=== PATIENT | male | born 1990 | race Caucasian/White ===

== ENCOUNTER 2017-01-22 00:45 | Observation (INO) | payer SELFPAY ==
[~2017-01-22] VITALS: Ht 188 cm; Wt 79.3 kg
[2017-01-22] MEDS ORDERED: OXYcodone/APAP 10/325MG TABLET PO ONE (01:30)
[2017-01-22] MEDS ORDERED: OXYcodone/APAP 10/325MG TABLET ONE (01:40)
[2017-01-22 02:23] LABS: BLOOD UREA NITROGEN 19 mg/dL (7-18)
[2017-01-22 02:26] LABS: ACETAMINOPHEN < 2 mcg/mL (10-30)
[2017-01-22 03:04] LABS: ANISOCYTOSIS 1+; HYPOCHROMIA 1+; MICROCYTOSIS 1+
[2017-01-22 03:05] LABS: OVALOCYTES 1+
[2017-01-22] MEDS ORDERED: ONDANSETRON ODT 4 MG PO PRN (04:30)
[2017-01-22] MEDS ORDERED: DOCUSATE 100 MG CAPSULE PO PRN (04:30)
[2017-01-22] MEDS ORDERED: BISACODYL 10 MG SUPP PR PRN (04:30)
[2017-01-22] MEDS ORDERED: POLYETHYLENE GLYCOL 17 GM PACKET PO PRN (04:30)
[2017-01-22] MEDS ORDERED: ACETAMINOPHEN 325 MG TABLET PO PRN (04:30)
[2017-01-22 04:32] LABS: DAU SCREEN DISCLAIMER
[2017-01-22 04:33] VITALS: BP 150/101
[2017-01-22 08:15] VITALS: BP 146/102
[2017-01-22] MEDS: FOLIC ACID 1 MG TABLET PO SCH (09:00)
[2017-01-22] MEDS: THIAMINE 100MG TABLET PO SCH (09:00)
[2017-01-22 13:30] VITALS: BP 145/81
[2017-01-22] MEDS: OXYcodone IR 5MG TABLET PO PRN (15:38)
[2017-01-22] MEDS: LORazepam 0.5MG TABLET PO PRN (20:07)
[2017-01-22 20:23] VITALS: BP 143/89
[2017-01-23] MEDS: FOLIC ACID 1 MG TABLET PO SCH (07:47)
[2017-01-23] MEDS: THIAMINE 100MG TABLET PO SCH (07:47)
[2017-01-23 08:02] VITALS: BP 133/81
[2017-01-23] MEDS: MULTIVITAMIN 1 TABLET PO SCH (11:30)
[2017-01-23] MEDS: OXYcodone IR 5MG TABLET PO PRN (13:00)
[2017-01-23] MEDS: LORazepam 0.5MG TABLET PO PRN (13:00)
[2017-01-23 19:37] VITALS: BP 128/87
[2017-01-24 08:20] VITALS: BP 134/85
[2017-01-24] MEDS: FOLIC ACID 1 MG TABLET PO SCH (09:43)
[2017-01-24] MEDS: THIAMINE 100MG TABLET PO SCH (09:43)
[2017-01-24] MEDS: MULTIVITAMIN 1 TABLET PO SCH (09:43)
[2017-01-24] MEDS ORDERED: LURASIDONE 20 MG TABLET PO SCH (12:30)
[2017-01-24] MEDS: OXYcodone IR 5MG TABLET PO PRN (12:49)
== END 2017-01-24 17:15 ==
LOC: ED 03:58 → EDIP 04:00 → 3E 04:34
PROVIDERS: ADMIT Internal Medicine; ATTEND Internal Medicine
DX: R45.851 Suicidal ideations (principal); D50.9 Iron deficiency anemia, unspecified; F10.20 Alcohol dependence, uncomplicated; F15.10 Other stimulant abuse, uncomplicated; R44.0 Auditory hallucinations; G47.10 Hypersomnia, unspecified; F32.9 Major depressive disorder, single episode, unspecified; S42.391A Other fracture of shaft of right humerus, initial encounter for closed fracture; F17.200 Nicotine dependence, unspecified, uncomplicated; Z81.8 Family history of other mental and behavioral disorders; W01.0XXA Fall on same level from slipping, tripping and stumbling without subsequent striking against object, initial encounter; Y92.89 Other specified places as the place of occurrence of the external cause; Y93.89 Activity, other specified; Y99.8 Other external cause status
CPT/HCPCS: 36415; 73060; 80048; 80307; 80329; 82040; 85025; 99285; G0378; G0480